=== PATIENT | female | born 1990 | race Hispanic/Latino ===

== ENCOUNTER 2023-05-16 05:06 | Inpatient (IN) | payer MEDICAID, OTHER ==
[~2023-05-16] VITALS: Ht 149.9 cm; Wt 77.1 kg
[2023-05-16] MEDS ORDERED: LACTATED RINGERS 1000ML 1,000 ML IV SCH (05:30)
[2023-05-16] MEDS ORDERED: CEFAZOLIN SODIUM 1 GM VIAL IVPB PRN (05:30)
[2023-05-16 06:40] LABS: HEMATOCRIT 37.7 % (36-48); MEAN CORPUSCULAR HEMOGLOBIN 29.7 pg (27.0-33.0); MEAN CORPUSCULAR VOLUME 87.5 fL (79-99); RED BLOOD CELL COUNT(AUTO) 4.31 MIL/uL (4.00-5.50); RED CELL DISTRIBUTION WIDTH 13.4 % (11.0-15.5); WHITE BLOOD COUNT (AUTO) 6.9 K/uL (4.8-10.8)
[2023-05-16] MEDS ORDERED: CEFAZOLIN SODIUM 2 GM VIAL IVPB ONE (08:40)
[2023-05-16] MEDS ORDERED: MORPHINE PF 100MG/10ML AMP IV ONE (08:44)
[2023-05-16] MEDS ORDERED: ONDANSETRON 4MG INJ ONE ×2 (08:44→11:17)
[2023-05-16] MEDS ORDERED: EPHEDRINE SULFATE 50 MG/ML AMPULE ONE (08:55)
[2023-05-16] MEDS ORDERED: PHARMACY COMMUNICATION MISC SCH (09:00)
[2023-05-16] MEDS ORDERED: MEPERIDINE-PF 75 MG/ML SYG IM PRN (11:00)
[2023-05-16] MEDS ORDERED: PROMETHAZINE HCL 25 MG/ML 1ML AMPULE IM PRN (11:00)
[2023-05-16] MEDS ORDERED: 0.9%NACL 10ML VIAL IVP PRN (11:00)
[2023-05-16] MEDS ORDERED: OXYTOCIN-LR 30 UNITS/500ML 500 ML IV PRN (11:00)
[2023-05-16] MEDS ORDERED: OXYTOCIN-LR 30 UNITS/500ML 500 ML IV ONE (11:05)
[2023-05-16 11:45] VITALS: BP 130/71
[2023-05-16] MEDS ORDERED: ONDANSETRON 4MG INJ IVP ONE (12:00)
[2023-05-16] MEDS ORDERED: DiphenhydrAMINE HCL 50 MG/ML VIAL IM ONE (12:00)
[2023-05-16] MEDS ORDERED: DiphenhydrAMINE HCL 50 MG/ML VIAL IV PRN (13:00)
[2023-05-16] MEDS: DEXTROSE 5 %-0.45 % NACL 1,000 ML IV PRN (16:45)
[2023-05-16] MEDS ORDERED: PREN-226 PO (19:38)
[2023-05-16] MEDS ORDERED: FERS325 PO (19:38)
[2023-05-16 19:40] VITALS: BP 117/72
[2023-05-16] MEDS ORDERED: ACETAMINOPHEN WITH CODEINE 1 TAB TAB PO PRN (20:30)
[2023-05-16] MEDS ORDERED: HYDROCODONE/ACETAMINOPHEN 5/325 MG TAB PO PRN (20:30)
[2023-05-16] MEDS ORDERED: ACETAMINOPHEN 500 MG TABLET PO PRN (20:30)
[2023-05-16 23:22] VITALS: BP 113/71
[2023-05-17] MEDS: DEXTROSE 5 %-0.45 % NACL 1,000 ML IV PRN (01:35)
[2023-05-17 03:35] VITALS: BP 114/63
[2023-05-17 06:38] LABS: HEMATOCRIT 31.2 % (36-48); MEAN CORPUSCULAR VOLUME 88.4 fL (79-99); RED BLOOD CELL COUNT(AUTO) 3.53 MIL/uL (4.00-5.50); RED CELL DISTRIBUTION WIDTH 13.4 % (11.0-15.5); WHITE BLOOD COUNT (AUTO) 11.1 K/uL (4.8-10.8)
[2023-05-17 07:25] VITALS: BP 125/79
[2023-05-17] MEDS ORDERED: IBUPROFEN 800 MG TAB PO SCH (07:30)
[2023-05-17] MEDS ORDERED: ACETAMINOPHEN WITH CODEINE 1 TAB TAB PO PRN (07:30)
[2023-05-17] MEDS ORDERED: ACETAMINOPHEN 500 MG TABLET PO PRN (07:30)
[2023-05-17] MEDS ORDERED: BISACODYL 10 MG SUPP.RECT RC PRN (07:30)
[2023-05-17] MEDS ORDERED: SIMETHICONE 80 MG TAB.CHEW PO PRN (07:30)
[2023-05-17] MEDS ORDERED: HYDROCODONE/ACETAMINOPHEN 5/325 MG TAB PO PRN (07:30)
[2023-05-17] MEDS ORDERED: DOCUSATE SODIUM 100 MG CAP PO SCH (09:00)
[2023-05-17 12:00] VITALS: BP 113/74
[2023-05-17] MEDS ORDERED: ACET-2079 PO (12:00)
== END 2023-05-17 14:25 | disposition home or self-care (01) | DRG 788 ==
LOC: LDH 05:06 → WSH 11:43
PROVIDERS: ADMIT Obstetrics & Gynecology; ATTEND Obstetrics & Gynecology
PROC: 10D00Z1 Extraction of Products of Conception, Low, Open Approach (ICD-10-PCS; principal; 2023-05-16 08:35)
DX: O34.211 Maternal care for low transverse scar from previous cesarean delivery (principal); Z37.0 Single live birth; Z3A.39 39 weeks gestation of pregnancy; Z20.822 Contact with and (suspected) exposure to COVID-19
CPT/HCPCS: 36415; 59510; 85027; 86592; 86850; 86900; 86901; 87340; 87635; A4344; G0378; J0690; J1200; J2274; J2405; J3490; J7120